=== PATIENT | female | born 1960 | race African-American/Black ===

== ENCOUNTER 2024-10-14 06:45 | Day surgery (SDC) | payer OTHER ==
[2024-10-07 13:24] VITALS: BMI 28.3
[2024-10-14] MEDS ORDERED: PROPOFOL 20 ML ONE (08:48)
[2024-10-14] MEDS ORDERED: MIDAZOLAM HCL 2 MG/2 ML SINGLE DOSE VIAL ONE ×2 (08:49→09:12)
[2024-10-14] MEDS ORDERED: BUPIVACAINE HCL/EPINEPHRINE/PF 30 ML VIAL IJ ONE (08:59)
[2024-10-14] MEDS ORDERED: ceFAZolin SODIUM 1 GM VIAL ONE (09:20)
[2024-10-14] MEDS ORDERED: DEXAMETHASONE SOD PHOSPHATE 4 MG/1 ML VIAL ONE (09:23)
[2024-10-14] MEDS ORDERED: ONDANSETRON 4 MG/2 ML VIAL ONE ×2 (09:23→11:18)
[2024-10-14] MEDS: BUPIVACAINE 0.25% /EPI 1:200,000 10 ML VIAL NR ONE (09:31)
[2024-10-14] MEDS ORDERED: KETOROLAC TROMETHAMINE 30 MG/1 ML VIAL ONE (09:41)
[2024-10-14] MEDS ORDERED: ACETAMINOPHEN INJECTION 100 ML ONE (09:44)
[2024-10-14] MEDS ORDERED: oxyCODONE HCL 5 MG TABLET PO PRN (10:33)
[2024-10-14] MEDS ORDERED: LACTATED RINGERS SOLUTION 1,000 ML IV SCH (10:45)
[2024-10-14] MEDS: ONDANSETRON 4 MG/2 ML VIAL IVPUSH PRN (11:30)
[2024-10-14 11:49] VITALS: RESP 18
[2024-10-14 12:17] VITALS: TEMP 97.8
[2024-10-14] MEDS ORDERED: PROMETHAZINE HCL 25 MG/1 ML VIAL ONE (13:37)
[2024-10-14] MEDS: PROMETHAZINE HCL 25 MG/1 ML VIAL IVPB PRN (13:40)
[2024-10-14 15:41] VITALS: BP 122/74; PULSE 56
== END 2024-10-14 15:46 | disposition home or self-care (01) ==
LOC: FASU 06:45
PROVIDERS: ATTEND Orthopaedic Surgery
PROC: 0SQD4ZZ Repair Left Knee Joint, Percutaneous Endoscopic Approach (ICD-10-PCS; principal; 2024-10-14 09:31)
DX: S83.242A Other tear of medial meniscus, current injury, left knee, initial encounter (principal); X58.XXXA Exposure to other specified factors, initial encounter; Y92.9 Unspecified place or not applicable; Y93.9 Activity, unspecified
CPT/HCPCS: 82962; 94760; C1713; J0131